=== PATIENT | female | born 2000 | race Caucasian/White ===

== ENCOUNTER 2022-12-25 03:14 | Emergency (ER) | payer OTHER, MEDICAID, SELFPAY ==
--- NOTE | 2022-12-25 | ECG_ITS ---
Test Reason : OD Blood Pressure : / mmHG Vent. Rate : 081 BPM Atrial Rate : 081 BPM P-R Int : 156 ms QRS Dur : 076 ms QT Int : 364 ms P-R-T Axes : 012 060 024 degrees QTc Int : 422 ms Normal sinus rhythm Normal ECG No previous ECGs available Referred By: Allen Thomas Electronically Signed By:YOGESH SWENSON
--- NOTE | ~2022-12-25 | XR_ITS ---
EXAMINATION: XR CHEST CLINICAL INFORMATION: Hypoxia. Overdose. COMPARISON: None available. TECHNIQUE: Frontal view of the chest was obtained. FINDINGS: Cardiac leads overlie the chest. The lungs are well expanded. Diffuse bronchial wall thickening. Associated hazy opacity of the right mid lung. There is no edema or effusion. No pneumothorax. The cardiomediastinal silhouette is within normal limits. No acute osseous abnormality. XR/XR chest 1V IMPRESSION: Bronchial wall thickening can be seen with a small airways process such as asthma or atypical/viral infection. Hazy opacity of the right mid lung could represent superimposed atelectasis or pneumonia. Aspiration possible.
[2022-12-25 03:26] VITALS: BP 102/73; BP 142/100; PULSE 127; PULSE 87; RESP 12; O2SAT 82; O2SAT 92; BMI 25.4
[2022-12-25] MEDS: Naloxone HCl Nasal 4 MG SPRAY NOSTRILALT (03:34)
--- NOTE | 2022-12-25 03:38 | ED.OVERDOSE ---
HPI - Overdose General Chief Complaint: Overdose Stated Complaint: od Time Seen by Provider: 12/25/22 03:29 Source: patient Mode of arrival: EMS Limitations: no limitations History of Present Illness HPI Narrative: 22-year-old female who was brought in by ambulance for an overdose. The patient was found unresponsive outside. The police arrived on the scene and gave the patient a intranasal Narcan 8 mg with a good response. The patient woke up. She told the police that she used a blue powder intranasally which she thought was oxycodone. On arrival to the emergency department the patient was again somnolent. Her O2 saturation was 82% on room air and she was placed on 100% non-rebreather with O2 saturations at 100%. She was given a no other dose of Narcan 4 mg intranasally and she woke up. She was able to tell me that she did take a blue powder which she thought was oxycodone and she has used this in the past. She does not remember passing out and does not remember being unresponsive outside. Related Data Previous Rx's Medication Instructions Recorded amoxicillin 500 mg capsule 1,000 mg PO TID 5 days #30 caps 12/25/22 doxycycline hyclate 100 mg tablet 100 mg PO Q12H 5 days #10 tabs 12/25/22 Allergies Allergy/AdvReac Type Severity Reaction Status Date / Time No Known Allergies Allergy Verified 12/25/22 03:35 Review of Systems Review of Systems: Yes all other systems are reviewed and are negative [facility] Past Medical History [facility] Narrative: Past medical history: None. Social history: The patient denies tobacco use. She states she occasionally drinks alcohol but was not drinking alcohol this evening. She does smoke marijuana. Social History Social History Use of substances other than those prescribed or required for medical reasons: Yes Physical Exam Vital Signs: Vital Signs: Last Vital Signs Pulse 91 12/25/22 04:04 Resp 16 12/25/22 04:04 BP 108/72 12/25/22 04:04 Pulse Ox 96 12/25/22 04:07 O2 Del Method Nasal Cannula 12/25/22 04:07 O2 Flow Rate 2 12/25/22 04:07 BMI result Body Mass Index 25.4 Const: Other: Initially the patient was somnolent, O2 saturation was 82% on room air and improved with 100% non-rebreather mask. She was given a dose of Narcan 4 mg intranasally in the emergency department and now she is awake and alert and her O2 saturation is improved. HEENT: Head: Yes normal to inspection, Yes normocephalic and Yes atraumatic Ears: external ears normal General nose exam: Normal external nose present Face and sinus: Yes normal facial exam Mouth: Normal oral and palatal mucosa present Throat: Yes posterior oropharynx normal Eyes: General: appearance normal, both eyes and all related structures Pupils: Equal, round and reactive pupils present Neck: Neck: Yes normal visual inspection, Yes no lymphadenopathy, Yes trachea midline and Yes supple Chest: Chest palpation & inspection: normal inspection of the chest and normal palpation of entire chest wall Resp: Effort & Inspection: normal respiratory effort and able to speak in complete sentences Auscultation: clear to auscultation bilaterally Cardio: Rate: regular rate Rhythm: regular rhythm Heart sounds: S1 normal heart sound present, S2 normal heart sound present and no murmurs GI: Inspection: Yes normal to inspection Palpation (GI): Soft to palpation, nontender and no guarding Auscultation: normal bowel sounds : General: Yes no CVA tenderness Back/Spine/Pelvis: Back: no CVA tenderness Skin: General skin exam: no rashes or lesions noted Neuro: Cranial nerves: Yes CN's II-XII intact bilaterally and Yes Equal, round and reactive pupils present Cognition (Neuro): normal cognition Motor exam (neuro): 5/5 motor strength present throughout Extrem: General: Yes normal to inspection Psych: Appearance: grossly normal Speech and movement: Normal speech and movement present Affect: normal affect Attitude: cooperative Thought process: Normal thought process present Thought content: Normal thought content present Medications Administered Generic Name Dose Route Start Last Admin Trade Name Freq PRN Reason Stop Dose Admin Sodium Chloride 1,000 mls @ 999 mls/hr 12/25/22 03:35 12/25/22 03:47 Ns IV 12/25/22 04:35 999 mls/hr .Q1H1M STA Administration Discontinued Medications Generic Name Dose Route Start Last Admin Trade Name Freq PRN Reason Stop Dose Admin Naloxone HCl 4 mg 12/25/22 03:34 12/25/22 03:34 Naloxone Hcl Nasal 4 Mg [place] NOSTRILALT 12/25/22 03:35 4 mg ONCE ONE Administration Medical Decision Making Medical Decision Making MDM Narrative: 22-year-old female who presents emergency department for evaluation of altered mental status, found unresponsive by police, patient was revived with 8 mg of intranasal Narcan and did report that she used a blue powder intranasally which she thought was oxycodone. She states she has used this blue powder before in the past. The patient had no memory of passing out her being unresponsive. Patient's vital signs were unremarkable. Lung exam was clear. I ordered the following evaluation: CBC, CMP, PT/INR, PTT, lactic acid, lipase, blood cultures x2, chest x-ray 1. Patient will be kept on a cardiac and O2 saturation monitor while she is here in the emergency department. 0433: Patient's laboratory evaluation was unremarkable. Chest x-rays consistent for right middle lobe infiltrate which is most likely an aspiration pneumonia. Patient was treated with doxycycline 100 mg orally and amoxicillin 1000 mg orally. She was given prescriptions for doxycycline 100 mg q.12 hours x7 days and amoxicillin 1000 mg 3 times a day for 7 days. The patient does not want a SUDE exam She will be discharged home with an manager of internal nasal Narcan dispense pack. Differential Diagnosis Differential Diagnoses: The differential diagnosis associated with the presentation includes Differential diagnosis includes but is not limited to heroin overdose, fentanyl overdose, polysubstance overdose, aspiration pneumonia, electrolyte abnormality, anemia Admission/Observation Consideration of admission/observation: Escalation of care including admission/observation considered Lab Data MDM Lab Attestation statement: I reviewed the patient's lab results. My independent interpretation patient's laboratory evaluation is as follows: CBC is normal . PT/INR normal. CMP and lipase were normal. Lactic acid elevated 2.1. 12/25/22 03:47 12/25/22 03:47 Labs: Lab Results 12/25/22 12/25/22 12/25/22 Range/Units 03:47 03:47 03:47 WBC 8.3 (4.8-10.8) X10*3/uL RBC 4.74 (4.20-5.50) X10*6/uL Hgb 13.4 (12.0-16.0) g/dl Hct 40.8 (37.0-47.0) % MCV 86.1 (80.0-98.0) fL MCH 28.3 (27.0-33.0) pg MCHC 32.8 (31.0-35.0) g/dl RDW 11.4 (11.0-16.0) % Plt Count 251 (160-400) X10*3/uL MPV 9.3 L (9.4-12.3) fL Immature Gran % (Auto) 0.4 (0.0-0.4) % Neut % (Auto) 67.5 (45-73) % Lymph % (Auto) 25.6 (20-40) % [place] % (Auto) 4.7 (2-11) % Eos % (Auto) 1.3 (0-4) % Baso % (Auto) 0.5 (0-2) % Lymph # (Auto) 2.1 (1.2-4.9) X10*3/uL [place] # (Auto) 0.4 (0.1-1.2) X10*3/uL Eos # (Auto) 0.1 (0.0-0.4) X10*3/uL Baso # (Auto) 0.0 (0.0-0.2) X10*3/uL Abs Immat Gran (auto) 0.03 (0.00-0.03) X10*3/uL Absolute Neuts (auto) 5.6 (2.0-8.3) x10*3/uL Absolute Nucleated RBC 0.000 (0.0-0.012) X10*3/uL Nucleated RBC % (auto) 0.0 (0.0-0.2) /100WBC PT 12.2 (11.1-13.3) SEC INR 1.0 (0.9-1.1) APTT 30.2 (26.0-36.4) SEC Sodium 139 (135-145) mmol/L Potassium 3.3 (3.3-5.1) mmol/L Chloride 103 (96-108) mmol/L Carbon Dioxide 22 (22-29) mmol/L Anion Gap 17 (12-20) BUN 7 L (9-16) mg/dL Creatinine 0.81 (0.5-1.4) mg/dL Estim Creat Clear Calc 112.1 Estimated GFR > 60 Random Glucose 94 (60-115) mg/dL Lactic Acid (0.5-2.0) mmol/L Calcium 9.7 (8.4-10.2) mg/dL Total Bilirubin 0.3 (0.0-1.0) mg/dL AST 18 (5-31) U/L ALT 17 (0-31) U/L Alkaline Phosphatase 65 (39-117) U/L Total Protein 6.9 (6.5-8.0) g/dL Albumin 4.4 (3.5-5.0) g/dL Lipase 8 (8-78) U/L 12/25/22 Range/Units 03:47 WBC (4.8-10.8) X10*3/uL RBC (4.20-5.50) X10*6/uL Hgb (12.0-16.0) g/dl Hct (37.0-47.0) % MCV (80.0-98.0) fL MCH (27.0-33.0) pg MCHC (31.0-35.0) g/dl RDW (11.0-16.0) % Plt Count (160-400) X10*3/uL MPV (9.4-12.3) fL Immature Gran % (Auto) (0.0-0.4) % Neut % (Auto) (45-73) % Lymph % (Auto) (20-40) % [place] % (Auto) (2-11) % Eos % (Auto) (0-4) % Baso % (Auto) (0-2) % Lymph # (Auto) (1.2-4.9) X10*3/uL [place] # (Auto) (0.1-1.2) X10*3/uL Eos # (Auto) (0.0-0.4) X10*3/uL Baso # (Auto) (0.0-0.2) X10*3/uL Abs Immat Gran (auto) (0.00-0.03) X10*3/uL Absolute Neuts (auto) (2.0-8.3) x10*3/uL Absolute Nucleated RBC (0.0-0.012) X10*3/uL Nucleated RBC % (auto) (0.0-0.2) /100WBC PT (11.1-13.3) SEC INR (0.9-1.1) APTT (26.0-36.4) SEC Sodium (135-145) mmol/L Potassium (3.3-5.1) mmol/L Chloride (96-108) mmol/L Carbon Dioxide (22-29) mmol/L Anion Gap (12-20) BUN (9-16) mg/dL Creatinine (0.5-1.4) mg/dL Estim Creat Clear Calc Estimated GFR Random Glucose (60-115) mg/dL Lactic Acid 2.1 H* (0.5-2.0) mmol/L Calcium (8.4-10.2) mg/dL Total Bilirubin (0.0-1.0) mg/dL AST (5-31) U/L ALT (0-31) U/L Alkaline Phosphatase (39-117) U/L Total Protein (6.5-8.0) g/dL Albumin (3.5-5.0) g/dL Lipase (8-78) U/L Independent Interpretation I performed an independent interpretation of an: EKG Interpretation: My independent interpretation patient's 12 EKG done at 03:40 hours is as follows: Normal sinus rhythm rate of 81, normal PA interval, QRS duration QTC interval, inverted T-wave in lead 3, no PVCs, no PACs, no ST segment elevation, no ST segment depression. This is a normal EKG. There is no old EKG for comparison My independent interpretation of the patient's chest x-ray is right middle lobe infiltrate Radiology Impression Discussion of test interpretation with radiology: I have reviewed the radiologist's reading. Radiologist Impression: XR chest 1V IMPRESSION: Bronchial wall thickening can be seen with a small airways process such as asthma or atypical/viral infection. Hazy opacity of the right mid lung could represent superimposed atelectasis or pneumonia. Aspiration possible. Dictated By:Gurpreet Menezes MD Independent Historian Clinical information obtained from an independent historian. History obtained from or confirmed by: EMS Prescription Management I considered prescription management with: Antibiotic Discharge Plan Discharge Clinical Impression: Opiate overdose, Pneumonia Patient Disposition: Home, Self-Care Instructions: Community Acquired Pneumonia (ED) Additional Instructions: Your found unresponsive by the police and they revived you using intranasal Narcan. You most likely overdosed on fentanyl. Your blood work was normal. Your x-ray is consistent with pneumonia, most likely swallow vomit into your lungs when your unresponsive/unconscious. Take doxycycline 100 mg, 1 pill every 12 hours for 5 days Take amoxicillin 500 mg pills, 2 pills, every 6 hours (3 times a day) for 5 days. Your are being discharged home with intranasal Narcan. If you are going to continue to use heroin, you should make sure that there is a sober person with you that is not using drugs and that this person can administer intranasal Narcan in the event that you stop breathing. Follow-up with your doctor in 2 days. Please return to the emergency department if your symptoms get worse or if you develop any symptoms that are concerning to you. If you change your mind and you want help with your addiction, please return to the emergency department and we can have our care team and recovery team see you and help you. Prescriptions: New amoxicillin 500 mg capsule 1,000 mg PO TID 5 Days Qty: 30 0RF doxycycline hyclate 100 mg tablet 100 mg PO Q12H 5 Days Qty: 10 0RF
[2022-12-25] MEDS: 0.9 % Sodium Chloride 1,000 ML 999 ML IV (03:47)
--- NOTE | 2022-12-25 03:50 | PC.NURSE ---
Assumed care of pt. On arrival, pt lethargic, responsive to voice, with minimal answers. pt with poor oxygenation, placedon O2 initially by NC with minimal effect, given dose of nasal narcan as charted and placed on NRB with good effect, with pt becoming more responsive. IV established, labs drawn. Planning to titrate O2 down as appropriate.
[2022-12-25 03:53] LABS: MANUAL DIFF FLAG NO
[2022-12-25 03:54] LABS: Basophils Percent Auto 0.5 % (0-2); Eosinophils Absolute Auto 0.1 X10*3/uL (0.0-0.4); Eosinophils Percent Auto 1.3 % (0-4); Hematocrit 40.8 % (37.0-47.0); Hemoglobin 13.4 g/dl (12.0-16.0); Imm Gran Abs Auto 0.03 X10*3/uL (0.00-0.03); Imm Gran Pct Auto 0.4 % (0.0-0.4); Lymphocytes Absolute Auto 2.1 X10*3/uL (1.2-4.9); Lymphocytes Percent Auto 25.6 % (20-40); Mean Corpuscular HGB Conc 32.8 g/dl (31.0-35.0); Mean Corpuscular Hemoglobin 28.3 pg (27.0-33.0); Mean Corpuscular Volume 86.1 fL (80.0-98.0); Mean Platelet Volume 9.3 fL (9.4-12.3); Monocytes Absolute Auto 0.4 X10*3/uL (0.1-1.2); Monocytes Percent Auto 4.7 % (2-11); Neutrophils Absolute Auto 5.6 x10*3/uL (2.0-8.3); Neutrophils Percent Auto 67.5 % (45-73); Platelet Count 251 X10*3/uL (160-400); Red Blood Count 4.74 X10*6/uL (4.20-5.50); Red Cell Distribution Width 11.4 % (11.0-16.0); White Blood Count 8.3 X10*3/uL (4.8-10.8)
[2022-12-25 04:00] LABS: Prothrombin Time 12.2 SEC (11.1-13.3)
[2022-12-25 04:03] LABS: Partial Thromboplastin Time 30.2 SEC (26.0-36.4)
[2022-12-25 04:04] VITALS: BP 108/72; PULSE 91; RESP 16; O2SAT 97
[2022-12-25 04:07] VITALS: O2SAT 96
[2022-12-25 04:11] LABS: Alanine Aminotransferase 17 U/L (0-31); Albumin Level 4.4 g/dL (3.5-5.0); Alkaline Phosphatase 65 U/L (39-117); Anion Gap 17 (12-20); Aspartate Amino Transferase 18 U/L (5-31); Bilirubin Total 0.3 mg/dL (0.0-1.0); Blood Urea Nitrogen 7 mg/dL (9-16); Calcium 9.7 mg/dL (8.4-10.2); Carbon Dioxide 22 mmol/L (22-29); Chloride 103 mmol/L (96-108); Creatinine Clr Calc Pharmacy 112.1; Estimated Glomerular Filt Rate > 60; Glucose Random 94 mg/dL (60-115); Lactic Acid 2.1 mmol/L (0.5-2.0); Lipase 8 U/L (8-78); Potassium 3.3 mmol/L (3.3-5.1); Sodium 139 mmol/L (135-145); Total Protein 6.9 g/dL (6.5-8.0)
--- NOTE | 2022-12-25 04:26 | PC.NURSE ---
pt DC'd own IV, canula intact, and requested to go home. notified.
[2022-12-25] MEDS: Doxycycline Monohydrate 100 MG CAPSULE PO (04:35)
[2022-12-25] MEDS: Amoxicillin 500 MG CAPSULE 1000 MG PO (04:35)
[2022-12-25 05:51] LABS: Reflex Lactate? Lactic Acid Added
== END 2022-12-25 05:01 | disposition home or self-care (01) ==
LOC: HO.ED 05:01
PROVIDERS: Emergency Provider Emergency Medicine Emergency Medical Services
DX: T40.2X1A Poisoning by other opioids, accidental (unintentional), initial encounter (principal); R40.4 Transient alteration of awareness; Y92.410 Unspecified street and highway as the place of occurrence of the external cause; J18.9 Pneumonia, unspecified organism; R74.02 Elevation of levels of lactic acid dehydrogenase [LDH]
CPT/HCPCS: 36415; 71045; 80053; 83605; 83690; 85025; 85610; 85730; 87040; 93005; 96360; 99284; 99285

== ENCOUNTER → 2022-12-25 03:40 | Outpatient (BNV) | payer BC, MEDICAID, SELFPAY | PROVIDERS: Emergency Provider Emergency Medicine Emergency Medical Services; Visit Provider Internal Medicine | DX: R41.82 Altered mental status, unspecified (principal) | CPT/HCPCS: 93010 ==